=== PATIENT | male | born 1995 | race Hispanic/Latino ===

== ENCOUNTER 2017-05-31 23:15 | Emergency (ER) | payer SELFPAY | END 2017-06-01 00:11 | disposition home or self-care (01) | LOC: EDH 23:15 | DX: K04.7 Periapical abscess without sinus (principal); F12.10 Cannabis abuse, uncomplicated; Z72.0 Tobacco use | CPT/HCPCS: 41800 ==

== ENCOUNTER 2021-07-06 19:35 | Emergency (ER) | payer OTHER ==
[~2021-07-06] VITALS: Ht 182.9 cm; Wt 135.2 kg
[2021-07-06 19:41] VITALS: BP 131/88
== END 2021-07-06 20:42 | disposition left against medical advice (07) ==
LOC: EEVIPCON 19:35 → EDH 19:35
DX: K08.89 Other specified disorders of teeth and supporting structures (principal); Z53.21 Procedure and treatment not carried out due to patient leaving prior to being seen by health care provider